=== PATIENT | female | born 1980 | race Caucasian/White ===

== ENCOUNTER 2020-11-19 12:01 | Emergency (ER) | payer MEDICAID ==
[~2020-11-19] VITALS: Ht 170.2 cm; Wt 106.9 kg
[2020-11-19 12:03] VITALS: BP 146/94
--- NOTE | 2020-11-19 13:31 | NUR ---
TO JES[facility] FROM LOBBY
--- NOTE | 2020-11-19 13:36 | NUR ---
PT AMBULATORY FROM LOBBY TO ROOM. PT CALMLY SITTING ON SOUMYA POWELL. CALL LIGHT WITHIN REACH.
--- NOTE | 2020-11-19 14:21 | NUR ---
Patient given discharge instructions and they have confirmed that they understand the instructions. Patient ambulatory with steady gait.
== END 2020-11-19 14:25 | disposition home or self-care (01) ==
LOC: ED 14:17
DX: S63.521A Sprain of radiocarpal joint of right wrist, initial encounter (principal); M79.89 Other specified soft tissue disorders; X58.XXXA Exposure to other specified factors, initial encounter; Y93.89 Activity, other specified; Y92.89 Other specified places as the place of occurrence of the external cause; Y99.8 Other external cause status
CPT/HCPCS: 99283